=== PATIENT | male | born 1955 | race Caucasian/White ===

== ENCOUNTER 2024-07-21 17:44 | Inpatient (IN) | payer MEDICARE, OTHER, SELFPAY ==
[2024-07-21] VITALS (13 sets, daily range): BP systolic 159–248; BP diastolic 101–164; BMI 40.5
--- NOTE | 2024-07-21 13:49 | ED.GENMED ---
ED Provider Triage
<Deep Peña PA-C - Last Filed: 07/21/24 13:50>
-
Patient seen by provider in Triage?: Seen in Triage
Attestation: A medical screening examination has been initiated by a qualified medical provider. Based on the assessment performed at this time, it has been determined that an emergent medical condition may exist and the patient has been informed
that further medical evaluation and possible additional diagnostic testing may be needed.
HPI: 69-year-old male presents for evaluation of shortness of breath and leg swelling ongoing for the past 1 to 2 weeks. Prior history of CHF. Not currently on diuretics. No fevers or chills.
GENERAL: Alert , in no apparent distress
EYE: No visual abnormalities.
NECK: Trachea midline
ENT: No visible abnormalities.
LUNGS: No acute respiratory distress
NEUROLOGICAL: Alert and oriented
SKIN: Skin intact. No visible changes.
MUSCULOSKELETAL: Moving extremities normally
PSYCH: Normal and appropriate interaction.
This is a medical evaluation conducted in person to initiate diagnostic evaluation and provide initial therapeutics. Please see further documentation by the treating clinician.
History of Present Illness
<Deep Peña PA-C - Last Filed: 07/21/24 13:50>
General
Chief Complaint: Heart Rate Problem
Time Seen by Provider: 07/21/24 14:16
<Kathleen Holguin PA-C - Last Filed: 07/21/24 23:08>
General
Source: patient
Exam Limitations: none
History of Present Illness
History of Present Illness:
69yoM with a history of hypertension and CHF presenting for evaluation of shortness of breath. Symptoms have been ongoing for the past several weeks. Dyspnea is worse with activity and with laying flat. He also is having increasing bilateral leg
swelling. Patient went to [facility] this afternoon and EKG showed atrial fibrillation and patient was sent to the ED. Patient has no prior history of afib. He denies any chest pain. Patient was admitted in 2019 for CHF. He has been off all
his medications for the past 3 years.
Past History
<Deep Peña PA-C - Last Filed: 07/21/24 13:50>
Past History
ED Past Medical History: Asthma and HTN; Negative Hypercholesterolemia or NIDDM
ED Past Surgical History: None
Social History
Tobacco: Non-smoker
Alcohol: Occasional
Personal: Single
Living: alone
Phy Exam
<Kathleen Holguin PA-C - Last Filed: 07/21/24 23:08>
General Physical Exam
General Presentation: mild distress
General Skin: warm and dry
General Habitus: normal
General Mental: alert
ENT Exam
ENT Exam: normocephalic
Cardiovascular Exam
Cardiovascular Exam: irregularly irregular, tachycardia and other (2-3+ pitting edema in bilateral lower extremities)
Pulmonary Exam
Pulmonary Exam: lungs clear, no respiratory distress, no rales, no crackles and no rhonchi
Neurological Exam
Neurological Exam: alert
Yenny Coma Scale
Eye Opening: Spontaneous
Verbal Response: Oriented
Motor Response: Obeys Commands
GCS Total Score: 15
Skin Exam
Skin Exam: normal color and warm/dry
Psychiatric Exam
Psychiatric Exam: normal mood/affect
Course
<Deep Peña PA-C - Last Filed: 07/21/24 13:50>
Orders/Labs/Results
Orders:
Orders
07/21/24 13:39
Electrocardiogram (*1) Urgent
Reason for Study: Bradycardia / Tachycardia
EKG- Treatment ONCE
07/21/24 13:49
CR Chest - 2 Views Urgent
Comment:
Reason For Exam: SOB
07/21/24 13:59
Complete Blood Count/With Diff Urgent
Comprehensive Metabolic Panel Urgent
Magnesium Urgent
NT-proBNP Urgent
Troponin I Urgent
07/21/24 14:30
Add On- LAB Urgent
Tests Added?: magnesium
Cardiac Monitoring- Treatment ONCE
07/21/24 14:33
Furosemide [Lasix] 40 mg IV NOW STA
07/21/24 14:52
PTT Urgent
Prothrombin Time Urgent
07/21/24 Dinner
Cholesterol Lowering
At Your Request: Full Participation
Fluid Restriction: 1200 mL/day (40 oz)
Cholesterol Lowering: Sodium, 2 Gram
07/21/24 15:28
CARDIOLOGY CONSULT Urgent
Consulting Provider: Sunday Brenner
Was physician already notified: Yes
07/21/24 16:21
Metoprolol [Lopressor] 5 mg IV NOW STA
07/21/24 16:25
Carvedilol [Coreg] 6.25 mg PO BID
HydrALAZINE [Apresoline] 25 mg PO TID
07/21/24 16:43
EKG [Electrocardiogram (*1)] Urgent
Reason for Study: Atrial Fibrillation
07/21/24 16:44
EKG- Treatment ONCE
07/21/24 17:00
ISOSORBIDE MONOnitrate ER [Imdur (Extended Release)] 30 mg PO DAILY
07/21/24 17:13
Admit/Transfer Patient As Directed
Co-Sign Provider:
Level of Care: Inpatient admission
Assign to:: Telemetry
Physician / Group: anjel nova
Diagnosis: acute on chronic chf , new afib, htn urgency ckd
Reason for Telemetry: Arrhythmia
Date to Stop Telemetry: 07/24/24
Time to Stop Telemetry: 11:00
Reason for Hospitalization: acute on chronic chf , new afib, htn urgency ckd
Expected length of stay greater than two midnights?: Yes
ELOS- Estimated Length of Stay in days: 4
I certify the patient meets the requirements for IP care: Yes
Code Status As Directed
Resuscitation Status: Full Code
07/21/24 17:15
PRN Pain Medication Management As Directed
May give lesser potent ordered pain med per pt: Yes
preference::
Protocol:: Medication orders for pain may be administered in a
manner that supports deferring to patient preference
when the pt is:
- Requesting an ordered lesser potent pain medication.
Least to most potent pain medications are defined
as: acetaminophen < NSAID < tramadol < opioids
(morphine, oxycodone, hydromorphone).
- Requesting a lesser dose of the same medication IF
ORDERED.
- Requesting a less intrusive route of administration
if both routes are prescribed by the provider (PO <
IV).
07/21/24 18:04
Troponin I Urgent
07/21/24 19:07
Acetaminophen [Tylenol] 650 mg PO Q4HPRN PRN
07/21/24 19:07
Activity As Directed
Activity Level: As Tolerated
Intake/ Output As Directed
Frequency: Per unit guidelines
Vital Signs As Directed
Frequency: Per unit guidelines
Weight As Directed
Frequency: Daily
Pulse Ox/spot Check [RESP] Routine
Quantity: 1
Ot Eval And Treat Routine
Pt Eval And Treat Routine
Activity Level: As Tolerated
DX Deep Vein Thrombosis Video Routine
07/21/24 20:00
Heparin 5,000 units SC Q12
07/21/24 22:00
EKG [Electrocardiogram (*1)] Urgent
Reason for Study: Shortness of Breath
07/21/24 22:25
Troponin I Urgent
07/22/24 06:00
Complete Blood Count/With Diff IN AM
Comprehensive Metabolic Panel IN AM
Hemoglobin A1c [Glycohemoglobin (HgbA1c)] IN AM
Lipid Profile [Cardiovascular Evaluation] IN AM
TSH Reflex To Free T4 IN AM
07/22/24 08:00
Furosemide [Lasix] 40 mg IV BID AT 0800,1600
07/23/24 06:00
Complete Blood Count/With Diff IN AM
Comprehensive Metabolic Panel IN AM
07/24/24 06:00
Echo 2D MMode Color/Doppler IN AM
Reason for Study: AFIB, CHF
Complete Blood Count/With Diff IN AM
Comprehensive Metabolic Panel IN AM
07/24/24 11:00
DC Protocol for Telemetry ONCE
07/25/24 06:00
Complete Blood Count/With Diff IN AM
Comprehensive Metabolic Panel IN AM
Abnormal Lab Results
07/21/24 07/21/24
13:59 14:52
MCHC 31.7 L g/dL
(33.0-37.0)
RDW 15.4 H %
(11.5-14.5)
MPV 10.8 H fL
(7.4-10.4)
Absolute Neuts (auto) 7.0 H 10^3/uL
(1.4-6.5)
Absolute Monos (auto) 0.9 H 10^3/uL
(0.1-0.6)
Neutrophils % 75.7 H %
(42.2-75.2)
Lymphocytes % 13.6 L %
(20.5-51.1)
PT 15.2 H Sec
(11.4-14.6)
BUN 35 H mg/dl
(9-20)
Creatinine 2.1 H mg/dL
(0.7-1.3)
Glucose 164 H mg/dl
(70-99)
Troponin I 0.170 H* ng/ml
07/21/24 13:59
07/21/24 13:59
Vital Signs
Initial and Last Documented VS:
Initial Vital Signs
Temp Pulse Resp BP
98.2 F 119 20 248/164
07/21/24 13:47 07/21/24 13:47 07/21/24 13:47 07/21/24 13:47
Last Documented Vital Signs
Temp Pulse Resp BP Pulse Ox
98.4 F 70 20 166/110 96
07/21/24 19:59 07/21/24 22:26 07/21/24 19:59 07/21/24 22:26 07/21/24 19:59
Raúllt;Kathleen Holguin PA-C - Last Filed: 07/21/24 23:08>
Orders/Labs/Results
Orders:
Orders
07/21/24 13:39
Electrocardiogram (*1) Urgent
Reason for Study: Bradycardia / Tachycardia
EKG- Treatment ONCE
07/21/24 13:49
CR Chest - 2 Views Urgent
Comment:
Reason For Exam: SOB
07/21/24 13:59
Complete Blood Count/With Diff Urgent
Comprehensive Metabolic Panel Urgent
Magnesium Urgent
NT-proBNP Urgent
Troponin I Urgent
07/21/24 14:30
Add On- LAB Urgent
Tests Added?: magnesium
Cardiac Monitoring- Treatment ONCE
07/21/24 14:33
Furosemide [Lasix] 40 mg IV NOW STA
07/21/24 14:52
PTT Urgent
Prothrombin Time Urgent
07/21/24 Dinner
Cholesterol Lowering
At Your Request: Full Participation
Fluid Restriction: 1200 mL/day (40 oz)
Cholesterol Lowering: Sodium, 2 Gram
07/21/24 15:28
CARDIOLOGY CONSULT Urgent
Consulting Provider: Sunday Brenner
Was physician already notified: Yes
07/21/24 16:21
Metoprolol [Lopressor] 5 mg IV NOW STA
07/21/24 16:25
Carvedilol [Coreg] 6.25 mg PO BID
HydrALAZINE [Apresoline] 25 mg PO TID
07/21/24 16:43
EKG [Electrocardiogram (*1)] Urgent
Reason for Study: Atrial Fibrillation
07/21/24 16:44
EKG- Treatment ONCE
07/21/24 17:00
ISOSORBIDE MONOnitrate ER [Imdur (Extended Release)] 30 mg PO DAILY
07/21/24 17:13
Admit/Transfer Patient As Directed
Co-Sign Provider:
Level of Care: Inpatient admission
Assign to:: Telemetry
Physician / Group: anjel nova
Diagnosis: acute on chronic chf , new afib, htn urgency ckd
Reason for Telemetry: Arrhythmia
Date to Stop Telemetry: 07/24/24
Time to Stop Telemetry: 11:00
Reason for Hospitalization: acute on chronic chf , new afib, htn urgency ckd
Expected length of stay greater than two midnights?: Yes
ELOS- Estimated Length of Stay in days: 4
I certify the patient meets the requirements for IP care: Yes
Code Status As Directed
Resuscitation Status: Full Code
07/21/24 17:15
PRN Pain Medication Management As Directed
May give lesser potent ordered pain med per pt: Yes
preference::
Protocol:: Medication orders for pain may be administered in a
manner that supports deferring to patient preference
when the pt is:
- Requesting an ordered lesser potent pain medication.
Least to most potent pain medications are defined
as: acetaminophen < NSAID < tramadol < opioids
(morphine, oxycodone, hydromorphone).
- Requesting a lesser dose of the same medication IF
ORDERED.
- Requesting a less intrusive route of administration
if both routes are prescribed by the provider (PO <
IV).
07/21/24 18:04
Troponin I Urgent
07/21/24 19:07
Acetaminophen [Tylenol] 650 mg PO Q4HPRN PRN
07/21/24 19:07
Activity As Directed
Activity Level: As Tolerated
Intake/ Output As Directed
Frequency: Per unit guidelines
Vital Signs As Directed
Frequency: Per unit guidelines
Weight As Directed
Frequency: Daily
Pulse Ox/spot Check [RESP] Routine
Quantity: 1
Ot Eval And Treat Routine
Pt Eval And Treat Routine
Activity Level: As Tolerated
DX Deep Vein Thrombosis Video Routine
07/21/24 20:00
Heparin 5,000 units SC Q12
07/21/24 22:00
EKG [Electrocardiogram (*1)] Urgent
Reason for Study: Shortness of Breath
07/21/24 22:25
Troponin I Urgent
07/22/24 06:00
Complete Blood Count/With Diff IN AM
Comprehensive Metabolic Panel IN AM
Hemoglobin A1c [Glycohemoglobin (HgbA1c)] IN AM
Lipid Profile [Cardiovascular Evaluation] IN AM
TSH Reflex To Free T4 IN AM
07/22/24 08:00
Furosemide [Lasix] 40 mg IV BID AT 0800,1600
07/23/24 06:00
Complete Blood Count/With Diff IN AM
Comprehensive Metabolic Panel IN AM
07/24/24 06:00
Echo 2D MMode Color/Doppler IN AM
Reason for Study: AFIB, CHF
Complete Blood Count/With Diff IN AM
Comprehensive Metabolic Panel IN AM
07/24/24 11:00
DC Protocol for Telemetry ONCE
07/25/24 06:00
Complete Blood Count/With Diff IN AM
Comprehensive Metabolic Panel IN AM
Abnormal Lab Results
07/21/24 07/21/24
13:59 14:52
MCHC 31.7 L g/dL
(33.0-37.0)
RDW 15.4 H %
(11.5-14.5)
MPV 10.8 H fL
(7.4-10.4)
Absolute Neuts (auto) 7.0 H 10^3/uL
(1.4-6.5)
Absolute Monos (auto) 0.9 H 10^3/uL
(0.1-0.6)
Neutrophils % 75.7 H %
(42.2-75.2)
Lymphocytes % 13.6 L %
(20.5-51.1)
PT 15.2 H Sec
(11.4-14.6)
BUN 35 H mg/dl
(9-20)
Creatinine 2.1 H mg/dL
(0.7-1.3)
Glucose 164 H mg/dl
(70-99)
Troponin I 0.170 H* ng/ml
07/21/24 13:59
07/21/24 13:59
Vital Signs
Initial and Last Documented VS:
Initial Vital Signs
Temp Pulse Resp BP
98.2 F 119 20 248/164
07/21/24 13:47 07/21/24 13:47 07/21/24 13:47 07/21/24 13:47
Last Documented Vital Signs
Temp Pulse Resp BP Pulse Ox
98.4 F 70 20 166/110 96
07/21/24 19:59 07/21/24 22:26 07/21/24 19:59 07/21/24 22:26 07/21/24 19:59
Raúllt;Kathleen Holguin PA-C - Last Filed: 07/21/24 23:08>
MDM/Problems Addressed
Differential Diagnosis Includes:
69yoM here with SOB and leg swelling x several weeks. Hx of CHF/HTN but off all meds for 3 years. Sent in by urgent care for new onset afib. BP 248/164 on arrival. HR in the 110s during exam. He appears volume overloaded. Differential diagnosis
includes but is not limited to: acute CHF exacerbation, hypertensive emergency, atrial fibrillation, ACS
Labs obtained in triage. Creatinine 2.1 which is new baseline. Troponin 0.17 and BNP >9000. Mild pulmonary edema seen on CXR. 40mg IV Lasix ordered. Cardiology consult placed and patient admitted for further management.
<Kathleen Holguin PA-C - Last Filed: 07/21/24 23:08>
*EKG
Interpreted by ED Provider?: Yes
EKG Intrepretation Date: 07/21/24
Heart Rate: 121
Rate: tachycardiac
Rhythm: a-fib
[place]: left axis deviation
Interval: normal interval
Ischemia: no ischemia
*Critical Care Note
Total Time (30-74mins, 75-104mins- exclusive of procedures): Not Applicable
ED Attending Note
<Deep Peña PA-C - Last Filed: 07/21/24 13:50>
-
Portions of this chart may have been created with voice recognition software.� Occasional wrong word or��sound alike� substitutions may have occurred due to the inherent limitations of voice recognition software.
Discharge Plan
Departure
Patient Disposition: Admit
Date of Disposition: 07/21/24
Time of Disposition: 15:28
Presentation/result/management discussed w/ accepting MD/DO: Hospitalist
Discharge Problem:
Acute exacerbation of CHF (congestive heart failure), Atrial fibrillation, Severe uncontrolled hypertension
Interventions
Interventions:
*Risk Screen - Suicide Last Done: 07/21/24 13:47
*General Assessment Last Done: 07/21/24 13:47
*Neglect/Abuse Screening Last Done: 07/21/24 13:47
ED- Fall Risk Assessment Last Done: 07/21/24 16:29
*ED COVID-19 Vaccine History Last Done: 07/21/24 14:20
*Nursing Disposition Last Done: 07/21/24 19:00
ED- Cardiac Assessment Last Done: 07/21/24 16:29
ED- Neurological Assessment Last Done: 07/21/24 16:31
ED- Pulmonary Assessment Last Done: 07/21/24 16:31
Discharge Date and Time
Discharge Date/Time: 07/21/24 19:00
[2024-07-21 14:13] LABS: % Basophils 0.5 % (0-2); % Eosinophils 0.6 % (0-6); % Immature Granulocytes 0.4 % (0-0.5); % Lymphocytes 13.6 % (20.5-51.1); % Monocytes 9.2 % (1.7-9.3); % Neutrophils 75.7 % (42.2-75.2); Absolute Basophils 0.1 10^3/uL (0-0.2); Absolute Eosinophils 0.1 10^3/uL (0-0.7); Absolute Lymphocytes 1.3 10^3/uL (1.2-3.4); Absolute Monocytes 0.9 10^3/uL (0.1-0.6); Hematocrit 43.6 % (39.0-52.0); Hemoglobin 13.8 g/dL (13.0-18.0); Mean Corp Hgb Conc. 31.7 g/dL (33.0-37.0); Mean Corpuscular Hgb 27.2 pg (27.0-31.0); Mean Corpuscular Volume 85.8 fL (80.0-94.0); Mean Platelet Volume 10.8 fL (7.4-10.4); Nucleated Red Blood Cells % 0 % (-); Platelet Count 233 10^3/uL (130-400); Red Blood Cell Count 5.08 10^6/uL (4.70-6.10); Red Cell Dist. Width 15.4 % (11.5-14.5); White Blood Cell Count 9.3 10^3/uL (4.8-10.8)
[2024-07-21 14:32] LABS: ALT (SGPT) 42 U/L (0-50); AST (SGOT) 38 U/L (17-59); Albumin 4.3 g/dl (3.5-5.0); Alkaline Phosphatase 107 U/L (38-126); Blood Urea Nitrogen 35 mg/dl (9-20); Calcium 9.5 mg/dl (8.4-10.2); Carbon Dioxide 25 mmol/L (22-30); Chloride 104 mmol/L (98-107); Glucose 164 mg/dl (70-99); Potassium 4.1 mmol/L (3.5-5.1); Sodium 141 mmol/L (135-145); Total Bilirubin 1.3 mg/dl (0.2-1.3); Total Protein 6.5 g/dl (6.3-8.2); eGFR 33.87
[2024-07-21 14:43] LABS: NT-proBNP 9170 pg/ml
[2024-07-21 14:50] LABS: Magnesium 2.1 mg/dl (1.6-2.3)
[2024-07-21] MEDS: LASIX 40 MG IV (14:53)
[2024-07-21 15:12] LABS: INR 1.17; PT 15.2 Sec (11.4-14.6)
[2024-07-21 15:13] LABS: APTT 28.6 Sec (23.4-35.0)
--- NOTE | 2024-07-21 16:23 | CON.CAR ---
Addendum entered and electronically signed by Sunday Brenner MD 07/21/24 16:44:
Mild troponin elevation:
-Likely acute nonischemic myocardial injury in the setting of hypertensive crisis, CKD, and CHF exacerbation.
Original Note:
Consultation
Consultation Request
Date/Time Consultation Requested: 07/21/2024
Date/Time Consultation Performed: 07/21/2024
Requesting Provider: Kathleen Holguin PA-C
Performing Provider: Dr. Brenner
Reason for Consultation: Hypertensive crisis
Medical History
-
Chief Complaint: Shortness of breath, lower extremity swelling
History of Present Illness:
64-year-old male (previously known to Dr. 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
history of progressive lower extremity swelling, dyspnea, and weight gain. The patient denies chest pain or palpitations. The patient stated that after COVID, he decided to stop following up with Cardiology because he felt fine and was worried
about the potential of medication side effects. The patient was also found to be in atrial fibrillation with RVR on arrival to the ER with a blood pressure of 248/164 mmHg.
Past Medical History
Past Medical History: CHF and HTN
Past Surgical History: Other (Melanoma removal from back 2 years ago)
Social History
Tobacco: Other (Previous cigar use)
Alcohol: Occasional (On weekends)
Drug: None
Family History
Family History: Reviewed & Not Pertinent
Allergies / Home Medications
Allergy/AdvReac Type Severity Reaction Status Date / Time
No Known Allergies Allergy Verified 07/21/24 13:52
�Medication �Instructions �Recorded �Confirmed �Type
No Meds [No Current Medications] 07/21/24 07/21/24 History
Review of Systems
-
History Source: Patient
All other systems: Negative unless noted
Physical Exam
Vital Signs
Temp Pulse Resp BP
98.2 F 114 16 224/139
07/21/24 13:47 07/21/24 14:45 07/21/24 14:59 07/21/24 14:45
Lab Results
07/21/24 13:59
07/21/24 13:59
Troponin I 0.170 ng/ml H* 07/21/24 13:59
Beu-E-Pewbqeygvtv Pept 9170 pg/ml 07/21/24 13:59
Physical Exam
General: No Apparent Distress and Comfortable
HEENT: Normocephalic and Anicteric
Respiratory: Rhonchi (Mild bibasilar)
Cardiac: S1/S2, Regular Rhythm, Murmur (2/6) and Peripheral Edema (2+)
Breast: N/A
GI: Soft and Non Tender
Rectal: Deferred by Provider
Musculoskeletal: Edema (2+ bilateral pitting)
Skin: Warm and Dry
Neuro: AO x 3
Psych: Calm
Impression / Plan
-
64-year-old male (previously known to Dr. 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
history of progressive lower extremity swelling, dyspnea, and weight gain. The patient denies chest pain or palpitations. The patient stated that after COVID, he decided to stop following up with Cardiology because he felt fine and was worried
about the potential of medication side effects. The patient was also found to be in atrial fibrillation with RVR on arrival to the ER with a blood pressure of 248/164 mmHg.
Hypertensive crisis:
-Patient was given Lasix 40 mg IV in the ER.
-Will give 5 mg IV Lopressor now.
-Will start Coreg 25 mg BID, Imdur 30 mg daily, and hydralazine 25 mg TID; will avoid medications that could worsen kidney function at this time (MARY inhibitor/ARB/Entresto, etc.).
-Echocardiogram this admission.
-Medications will be uptitrated over the weekend.
New onset atrial fibrillation with RVR:
-C2V score is at least 3.
-Check TSH and hemoglobin A1c.
-Systemic anticoagulation is indicated, but will not initiate until his blood pressure control has improved (increased risk of intracranial hemorrhage given currently high blood pressure).
-Echocardiogram this admission as above.
Acute on chronic HFmrEF (40-45%):
-GDMT as above.
-Will place on Lasix 40 mg IV BID.
CKD:
-Continue to monitor renal function.
Obesity:
-Chronic.
-Check lipid panel.
Data Reviewed
-
EKG: Report Reviewed by me (Atrial fibrillation at 120 bpm with LAFB and septal infarct pattern.)
Medical Tests (Nuc Med, Echo etc): Report Reviewed by me (Transthoracic Echocardiogram 12/08/2019): LVEF 70-75%, mild aortic regurgitation, sinus of Valsalva 4.3 cm, STJ 4.1 cm, ascending aorta 4.0 cm.)
Labs: Labs Reviewed by me
--- NOTE | 2024-07-21 16:26 | EDRN ---
Pt has had intermittent sob and swelling for 2 weeks. Pt went to [facility] and was told he was in AFIb and he was sent to ED for evaluation. Pt denies cp. No sob now but pt says if he lies down he will get sob. Pt did not have sob when he
got up to the bathroom. Pt felt pressure in his abdomen 'like a convulsion.' No fever/chills, n/v/c/d, urinary symptoms, weakness, dizziness.
--- NOTE | 2024-07-21 16:36 | HPS.HSE ---
Addendum entered and electronically signed by Ishmael Man MD 07/21/24 17:24:
I saw and examined the patient.
The LOGISTICS TECH or PA's note was reviewed and I agree with the note.
Comment:
69-year-old male now presents for shortness of breath, nausea, edema has been worsening approximately over the last 2 weeks.� Was seen in the hospital years ago, placed on meds for hypertensive urgency and never renewed them nor went back to the
doctor. Blood pressure 235/123, saturating 94% on room air, pulse 107, respiratory rate 16.� A-fib on EKG.� X-ray with cardiomegaly and increased pulmonary vascular congestion.� Serum creatinine 2.1, close to baseline.� Troponin 0.170, proBNP 9170.
#Shortness of breath
#Acute heart failure, unknown type- anticipate HFrEF
� Initiate diuresis 40 mg twice daily IV
� Initiate Coreg, hydralazine, isosorbide mononitrate
- Cards Consult
- F/u ECHO
- Troponins
#?Atrial Fibrillation
-Monitor on Tele with Coreg
-Anticoagulation once BPs improve � elevated BPs pose risk for cva.
#Hypertensive Emergency
-See plan above
-Coreg, Hydral, isososorbide mononitritate � titrate as needed
#CKD
-Stable
-Suspect 2/2 to uncontrolled htn
-monitor
#Will need outpt primary screening
#DVT ppx
Anticipate starting anticoagulation once BPs more controlled
Original Note:
Family Physician
-
Family Physician: * NONE
Chief Complaint
-
Shortness of breath, leg edema
History of Present Illness
69-year-old male complaining of shortness of breath for the past few weeks with swelling from feet to upper abdomen over the past 2 weeks. He has prior history of CHF diagnosed in 2019. He was given short course of diuretics, antihypertensive
medications lisinopril, Lasix, metoprolol. He states he took these until 2019 when ROSEANNA hit then he decided he was not going to any healthcare place. He began homeopathic meds with black seed oil and sea leyva he states he was bringing his blood
pressure to 130/100. He has not seen a primary care provider or any care provider since 2019 until today when he was seen at urgent care. They sent him over for A-fib with heart rate 123 bpm on his EKG. He denies chest pain, palpitations, fever,
chills, abdominal pain, nausea, vomiting, diarrhea, urinary symptoms.
Other past medical history includes asthma, HTN, CHF 2019, obesity
Medical History
Past Medical History
Past Medical History: Reports Other
Additional Past Medical History:
asthma
HTN
CKD 3B
CHF 2019
obesity
Past Surgical History: Reports Other
Additional Past Surgical History:
Tooth extraction all upper teeth with era attachments placed for false teeth
Basal cell CA removal with local anesthesia
Social History
Tobacco: Non-smoker
Alcohol: Occasional (Drinks 2 drinks Wednesday and Saturdays)
Drug: None
Employment: Retired
Family History
Family History: Other (Mother living hypertension, father cancer unknown type age 80, paternal grandfather age 40 [place])
Allergies / Home Medications
Allergies reflects when Allergies were last updated in [facility].
Home Medications with original date entered in [facility]
Allergy/Medication List:
Allergies
Allergy/AdvReac Type Severity Reaction Status Date / Time
No Known Allergies Allergy Verified 07/21/24 13:52
Home Medications
No Meds [No Current Medications] 07/21/24
Review of Systems
-
History Source: Patient
A 12 point ROS was completed and negative except as noted: Yes
Constitutional: Reports Weight Gain; Denies Fever, Fatigue or Chills
EENT: Denies Sore Throat or Runny Nose
Respiratory: Reports Trouble Breathing (Shortness of breath, FLOYD, orthopnea); Denies Cough
Cardiac: Denies Chest Pain, Diaphoresis, Palpitations or Syncope
Abdomen/GI: Denies Abdominal Pain, Nausea, Vomiting, Diarrhea, Constipated, Bloody Stools or Black Stools
: Denies Dysuria, Frequency, Flank Pain, Incontinence, Difficulty Voiding, Urgency or Bleeding
Musculoskeletal: Reports Edema (+2 from feet to abdomen); Denies Joint Pain
Skin: Denies Itching or Rash
Neurological: Denies Dizzy, Headache or Weakness
Endocrine: Reports No Symptoms
Hematologic/Lymphatic: Reports No Symptoms
Psych: Reports Calm
Physical Exam
Vital Signs
Vital Signs
Temp Pulse Resp BP
98.9 F 114 16 224/139
07/21/24 16:28 07/21/24 14:45 07/21/24 14:59 07/21/24 14:45
Physical Exam
General: Comfortable and Conversant; No Pain, Fever or Chills
HEENT: NormoCephalic, Anicteric, Moist mucous membranes, PERRLA, [place]gett Conjunctivae and No Ptosis
Respiratory: Clear; No Wheezes, Rales or Rhonchi
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
Breast: Deferred by me
GI: Soft, Non Tender, Non Distended, Normal Bowel Sounds, No Hepatosplenomegaly and Other (Edema from lower legs to upper abdomen)
Genito-urinary: Deferred by me
Musculoskeletal: No Clubbing, No Cyanosis, Edema, Left Lower Extremity (+2 from feet to abdomen) and Edema, Right Lower Extremity (+2 from feet to abdomen); No Edema, Left Upper Extremity or Edema, Right Upper Extremity
Skin: Warm and Dry; No Rash
Neuro: AO x 3, No Motor Deficits, Nonfocal/grossly intact and No Sensory Deficits; No Slurred Speech, Facial Droop, Tremors or Sedated
Psych: Calm
Laboratory Results
-
07/21/24 13:59
07/21/24 13:59
Laboratory Results
PT 15.2 Sec (11.4-14.6) H 07/21/24 14:52
INR 1.17 07/21/24 14:52
APTT 28.6 Sec (23.4-35.0) 07/21/24 14:52
Total Bilirubin 1.3 mg/dl (0.2-1.3) 07/21/24 13:59
AST 38 U/L (17-59) 07/21/24 13:59
ALT 42 U/L (0-50) 07/21/24 13:59
Alkaline Phosphatase 107 U/L (38-126) 07/21/24 13:59
Troponin I 0.170 ng/ml H* 07/21/24 13:59
Data Reviewed
-
Diagnostic Radiology: Report Reviewed by me
Lab Data: Labs Reviewed by me
Impression/Plan
-
Impression/plan:
Admit to telemetry
#Acute on chronic CHF
Dx CHF 2019 was noncompliant after using short course of diuretics states stopped seeing doctors during COVID
I/O, daily weights
-Consult CBC cardiology
-IV Lasix 40 mg twice daily
-Repeat 2D echo
CXR: Cardiomegaly with slightly increased pulmonary vascularity suggesting possible mild CHF acute versus chronic
2D echo 12/08/2019: EF 70 to 75%, no wall abnormalities, normal biventricular size and systolic function, mild LVH, mild aortic regurg, dilated aortic root sinus of Valsalva 4.3 cm sinotubular junction 4.1 cm, ascending aorta 4cm
2D echo 10/10/2018: EF 40-45%, mild reduced LVSF, global hypokinesis, mild LVH, mildly dilated left atrium, mild aortic regurg
#Hypertensive urgency/history of hypertensive urgency 2018
BP 224/139
IV Lopressor 5 mg now in ER
-To start hydralazine 25 mg 3 times daily, Imdur ER 30 mg daily, Lasix 40 mg IV twice daily, Coreg 6.25 mg p.o. twice daily
#Nonischemic myocardial injury
Patient denies chest pain does complain of shortness of breath due to CHF
Troponin 0.170, will trend
-Coreg 6.25 mg twice daily added by cardiology, Imdur ER 30 mg daily added
#New onset A-fib with RVR
EKG from urgent care heart rate 123 bpm
-Will monitor on telemetry
Check TSH, HgbA1c
-Initiate Coreg 6.25 mg twice daily for rate control
-Hold on anticoagulation due to hypertensive urgency and risk for intracranial hemorrhage
#CKD Stage IIIb
Creat 2.1 prior was 1.9 in 07/27/2019
Renal ultrasound 10/08 shows right kidney 12.5 cm, left kidney 11
cm. Postvoid residual 231.
#Class III obesity�BMI 40.5
113.9 kg > 95.1 kg 10/12/2018
-weight loss recommended
Affects all aspects of care
DVT prophylaxis
Subcu heparin
Full code
[2024-07-21] MEDS: LOPRESSOR 5 MG IV (16:38)
[2024-07-21] MEDS: APRESOLINE 25 MG PO ×2 (16:48→22:26)
[2024-07-21] MEDS: COREG 6.25 MG PO ×2 (16:48→20:48)
--- NOTE | 2024-07-21 16:53 | EDRN ---
Called pharmacy for imdavidr
[2024-07-21] MEDS: IMDUR (EXTENDED RELEASE) 30 MG PO (17:34)
[2024-07-21 18:39] LABS: Troponin I 0.244 ng/ml
[2024-07-21] MEDS: HEPARIN 5000 UNITS SC (20:48)
[2024-07-21 23:00] LABS: Troponin I 0.242 ng/ml
[2024-07-22] VITALS (9 sets, daily range): BP systolic 129–205; BP diastolic 77–126; BMI 39.7
--- NOTE | 2024-07-22 03:09 | PTCARENOTE ---
Admitted at change into 2253- CHF and AFIB booklet provided. Plan of care discussed pt verbalized understanding. SR with 1st degree on the monitor.
[2024-07-22 04:29] LABS: % Basophils 0.6 % (0-2); % Eosinophils 2.7 % (0-6); % Immature Granulocytes 0.3 % (0-0.5); % Lymphocytes 19.7 % (20.5-51.1); % Monocytes 10.5 % (1.7-9.3); % Neutrophils 66.2 % (42.2-75.2); Absolute Basophils 0.1 10^3/uL (0-0.2); Absolute Eosinophils 0.3 10^3/uL (0-0.7); Absolute Lymphocytes 1.9 10^3/uL (1.2-3.4); Absolute Neutrophils 6.4 10^3/uL (1.4-6.5); Hemoglobin 12.7 g/dL (13.0-18.0); Mean Corp Hgb Conc. 32.6 g/dL (33.0-37.0); Mean Corpuscular Hgb 27.9 pg (27.0-31.0); Mean Corpuscular Volume 85.7 fL (80.0-94.0); Mean Platelet Volume 10.9 fL (7.4-10.4); Nucleated Red Blood Cells % 0 % (-); Platelet Count 225 10^3/uL (130-400); Red Blood Cell Count 4.55 10^6/uL (4.70-6.10); Red Cell Dist. Width 15.3 % (11.5-14.5); White Blood Cell Count 9.6 10^3/uL (4.8-10.8)
[2024-07-22 05:02] LABS: ALT (SGPT) 39 U/L (0-50); AST (SGOT) 40 U/L (17-59); Albumin 4.3 g/dl (3.5-5.0); Alkaline Phosphatase 84 U/L (38-126); Blood Urea Nitrogen 35 mg/dl (9-20); Calcium 9.3 mg/dl (8.4-10.2); Carbon Dioxide 25 mmol/L (22-30); Chloride 107 mmol/L (98-107); Estimated Creatinine Clearance 40 ml/min; Glucose 103 mg/dl (70-99); HDL Cholesterol 45 mg/dl; LDL Cholesterol, Calculated 79 mg/dl; Potassium 4.3 mmol/L (3.5-5.1); Sodium 143 mmol/L (135-145); Total Bilirubin 1.2 mg/dl (0.2-1.3); Total Cholesterol 139 mg/dl (50-199); Total Protein 6.8 g/dl (6.3-8.2); Triglyceride 76 mg/dl (10-149); Very Low Density Lipoprotein 15 mg/dl (0-30); eGFR 33.87
[2024-07-22 05:15] LABS: TSH Reflex To Free T4 1.73 uIU/ml (0.47-4.68)
[2024-07-22] MEDS: COREG 6.25 MG PO ×2 (08:09→21:30)
[2024-07-22] MEDS: APRESOLINE 25 MG PO ×2 (08:09→09:23)
[2024-07-22] MEDS: IMDUR (EXTENDED RELEASE) 30 MG PO ×2 (08:09→09:22)
[2024-07-22] MEDS: LASIX 40 MG IV ×2 (08:11→17:04)
[2024-07-22] MEDS: HEPARIN 5000 UNITS SC ×2 (08:11→21:31)
[2024-07-22] MEDS: PROCARDIA XL (EXTENDED RELEASE) 30 MG PO (09:22)
--- NOTE | 2024-07-22 10:32 | W.PN.CD ---
Today's Communication / Plan
-
-Continue Coreg 6.25 mg BID.
-Increase Imdur to 60 mg daily and hydralazine to 50 mg TID.
-Add Procardia XL 30 mg daily.
-Echocardiogram Wednesday.
-Systemic anticoagulation is indicated, but will not initiate until his blood pressure control has improved (increased risk of intracranial hemorrhage given currently high blood pressure); will reassess tomorrow.
-Continue Lasix 40 mg IV BID.
Impression / Plan
-
64-year-old male (previously known to Dr. 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
history of progressive lower extremity swelling, dyspnea, and weight gain. The patient denies chest pain or palpitations. The patient stated that after COVID, he decided to stop following up with Cardiology because he felt fine and was worried
about the potential of medication side effects. The patient was also found to be in atrial fibrillation with RVR on arrival to the ER with a blood pressure of 248/164 mmHg.
Hypertensive crisis:
-Secondary to medical noncompliance over the past 5 years (has not taken any medications).
-Will likely have some degree of resistant hypertension, given the chronicity.
-Continue Coreg 6.25 mg BID.
-Increase Imdur to 60 mg daily and hydralazine to 50 mg TID.
-Add Procardia XL 30 mg daily.
-Avoiding medications that could worsen kidney function at this time (MARY inhibitor/ARB/Entresto, etc.).
-Echocardiogram Wednesday.
-Medications will continue to be uptitrated over the weekend.
New onset atrial fibrillation with RVR:
-Now back in sinus rhythm.
-C2V score is at least 3.
-TSH normal.
-Systemic anticoagulation is indicated, but will not initiate until his blood pressure control has improved (increased risk of intracranial hemorrhage given currently high blood pressure); will reassess tomorrow.
-Echocardiogram Wednesday.
Acute on chronic HFmrEF (40-45%):
-BNP 9170; significant edema on examination.
-GDMT as above.
-Continue Lasix 40 mg IV BID.
Troponin elevation:
-Acute nonischemic myocardial injury in the setting of uncontrolled hypertension and CKD.
CKD:
-Continue to monitor renal function.
Obesity:
-Chronic.
-Cholesterol controlled.
-Hemoglobin A1c pending
Physical Exam
Vital Signs/Labs
Vital Signs
Temp Pulse Resp BP Pulse Ox
97.9 F 87 16 151/97 97
07/22/24 07:58 07/22/24 09:22 07/22/24 07:58 07/22/24 09:22 07/22/24 07:58
07/21/24 07/22/24 07/23/24
06:59 06:59 06:59
Actual Weight 111.6 kg
07/22/24 04:08
07/22/24 04:08
PT 15.2 Sec (11.4-14.6) H 07/21/24 14:52
INR 1.17 07/21/24 14:52
APTT 28.6 Sec (23.4-35.0) 07/21/24 14:52
Magnesium 2.1 mg/dl (1.6-2.3) 07/21/24 13:59
Triglycerides 76 mg/dl (10-149) 07/22/24 04:08
LDL Cholesterol, Calc 79 mg/dl 07/22/24 04:08
VLDL Cholesterol, Calc 15 mg/dl (0-30) 07/22/24 04:08
HDL Cholesterol 45 mg/dl 07/22/24 04:08
07/21/24
13:59
Ybp-[id number] Pept 9170
LAB Results
01/07/21/24 07/21/24
13:59 18:04 22:25
Troponin I 0.170 H* 0.244 H* D 0.242 H*
Physical Exam
Constitutional: No acute distress and Comfortable
EENT: Anicteric
Cardiovascular: Rhythm & rate is regular, Systolic murmur absent, Pedal edema present (2-3+) and S1S2 is normal
Respiratory: Respiratory effort normal and Lungs clear to auscul.
GI: Soft
Neuro/Psych: AO x 3
Other: Skin (Warm, dry, intact)
Data Reviewed
-
Date of Service: July 22, 2024
EKG: Tracing Personally Visualized and interpreted (Telemetry: Sinus rhythm)
Medical Tests (PFT, Pathology etc): Discussed with Physician
Labs: Labs Reviewed by me
[2024-07-22 12:31] LABS: Glycohemoglobin (HgbA1c) 5.5 % (4.0-5.6)
--- NOTE | 2024-07-22 15:15 | PTCARENOTE ---
Assumed care of pt from prev nsg shift; Pt AAOx3 w/no c/o CP or SOB. Pt reports 'feeling much better'. Pt's HR in the 70's & BP 129/85. Pt is SR w/BBB on telemetry. Pt w/no addtl needs at this time. Plan of care ongoing.
--- NOTE | 2024-07-22 15:22 | W.PN.HOSP.TC ---
Today's Communication/Plan
-
Chest hypertensive regimen, add Procardia, increase Imdur, hydralazine, continue Coreg
Echocardiogram
Hold anticoagulation until blood pressures better controlled
Diuretics
Assessment / Plan
Assessment / Plan
Physical Exam
Constitutional: No acute distress and Comfortable
EENT: Anicteric
Cardiovascular: Rhythm & rate is regular, Systolic murmur absent, Pedal edema present (2-3+) and S1S2 is normal
Respiratory: Respiratory effort normal and Lungs clear to auscul.
GI: Soft
Neuro/Psych: AO x 3
Other: Skin (Warm, dry, intact)
#Shortness of breath
#Acute heart failure, unknown type- anticipate HFrEF
� Initiate diuresis 40 mg twice daily IV
� Initiate Coreg, hydralazine, isosorbide mononitrate
- Cards Consult
- F/u ECHO
#new Onset Atrial Fibrillation
-Monitor on Tele with Coreg
-Anticoagulation once BPs improve � elevated BPs pose risk for cva.
-TSH WNL
-F/u ECHO wednesday
#Hypertensive Emergency
-See plan above
-Coreg,
-Increase Hydra to 50mg TID
-Increase Imdur to 60mg daily
-Add Procardia Xl 30mg daily
#Elevated Troponin
�Most likely nonischemic myocardial injury in setting of uncontrolled hypertension, CKD
� Continue to monitor
#CKD
-Stable
-Suspect 2/2 to uncontrolled htn
-monitor
-Will need outpt primary screening
�Will benefit from MARY inhibitor once nonfactor stabilized
#DVT ppx
Anticipate starting anticoagulation once BPs more controlled
Anticipated Discharge: > 48 hours
Subjective/Interval History
-
Date of Service: July 22, 2024
Still hypertensive
Objective Data
-
Labs:
Laboratory Results
07/22/24
04:08
WBC 9.6
Hgb 12.7 L
Hct 39.0
Plt Count 225
Sodium 143
Potassium 4.3
Chloride 107
Carbon Dioxide 25
BUN 35 H
Creatinine 2.1 H
Glucose 103 H
Calcium 9.3
Total Bilirubin 1.2
AST 40
ALT 39
Alkaline Phosphatase 84
Vital Signs:
Vital Signs
Temp Pulse Resp BP Pulse Ox
97.9 F 67 18 137/82 96
07/22/24 11:27 07/22/24 12:00 07/22/24 11:27 07/22/24 11:25 07/22/24 11:27
I&O
07/21/24 07/22/24 07/23/24
06:59 06:59 06:59
Output Total 200 / 200
Balance -200 / -200
Review of Systems
-
History Source: Patient
All other systems: Not reviewed unless documented
Data Reviewed
-
Diagnostic Radiology: Report Reviewed by me
Labs: Labs Reviewed by me
[2024-07-22] MEDS: APRESOLINE 50 MG PO ×2 (17:03→21:31)
[2024-07-23 03:56] VITALS: BMI 37.3
[2024-07-23 03:57] VITALS: BP 158/90
[2024-07-23 04:40] LABS: % Basophils 0.7 % (0-2); % Eosinophils 3.4 % (0-6); % Immature Granulocytes 0.3 % (0-0.5); % Monocytes 13.1 % (1.7-9.3); % Neutrophils 64.5 % (42.2-75.2); Absolute Basophils 0.1 10^3/uL (0-0.2); Absolute Eosinophils 0.3 10^3/uL (0-0.7); Absolute Lymphocytes 1.6 10^3/uL (1.2-3.4); Absolute Monocytes 1.2 10^3/uL (0.1-0.6); Absolute Neutrophils 5.7 10^3/uL (1.4-6.5); Hematocrit 38.9 % (39.0-52.0); Hemoglobin 12.7 g/dL (13.0-18.0); Mean Corp Hgb Conc. 32.6 g/dL (33.0-37.0); Mean Corpuscular Hgb 27.9 pg (27.0-31.0); Mean Corpuscular Volume 85.3 fL (80.0-94.0); Mean Platelet Volume 10.9 fL (7.4-10.4); Nucleated Red Blood Cells % 0 % (-); Platelet Count 218 10^3/uL (130-400); Red Blood Cell Count 4.56 10^6/uL (4.70-6.10); Red Cell Dist. Width 15.3 % (11.5-14.5); White Blood Cell Count 8.8 10^3/uL (4.8-10.8)
[2024-07-23 05:03] LABS: ALT (SGPT) 36 U/L (0-50); AST (SGOT) 33 U/L (17-59); Albumin 3.9 g/dl (3.5-5.0); Alkaline Phosphatase 85 U/L (38-126); Blood Urea Nitrogen 32 mg/dl (9-20); Carbon Dioxide 31 mmol/L (22-30); Chloride 100 mmol/L (98-107); Estimated Creatinine Clearance 39 ml/min; Glucose 95 mg/dl (70-99); Potassium 3.9 mmol/L (3.5-5.1); Sodium 142 mmol/L (135-145); Total Bilirubin 0.9 mg/dl (0.2-1.3); Total Protein 6.4 g/dl (6.3-8.2); eGFR 33.87
[2024-07-23 08:06] VITALS: BP 158/90
[2024-07-23] MEDS: IMDUR (EXTENDED RELEASE) 60 MG PO (08:24)
[2024-07-23] MEDS: APRESOLINE 50 MG PO ×3 (08:24→20:51)
[2024-07-23] MEDS: PROCARDIA XL (EXTENDED RELEASE) 30 MG PO (08:24)
[2024-07-23] MEDS: HEPARIN 5000 UNITS SC (08:25)
[2024-07-23] MEDS: COREG 6.25 MG PO ×2 (08:25→20:51)
[2024-07-23] MEDS: LASIX 40 MG IV (08:25)
--- NOTE | 2024-07-23 08:50 | PTCARENOTE ---
Assumed care of pt from body builder RN. Pt AAOx3. NSR on community health nursing director. VSS. Pt without complaint at this time. Resting in bed, call jimenes in reach. Assessment documented.
[2024-07-23 11:17] VITALS: BP 105/79
--- NOTE | 2024-07-23 15:00 | W.PN.HOSP.TC ---
Today's Communication/Plan
-
bp control
anticipate initiating anticoagulation today
ECHO tomorrow
Assessment / Plan
Assessment / Plan
Physical Exam
Constitutional: No acute distress and Comfortable
EENT: Anicteric
Cardiovascular: Rhythm & rate is regular, Systolic murmur absent, Pedal edema present (2-3+) and S1S2 is normal
Respiratory: Respiratory effort normal and Lungs clear to auscul.
GI: Soft
Neuro/Psych: AO x 3
Other: Skin (Warm, dry, intact)
#Shortness of breath
#Acute heart failure, unknown type- anticipate HFrEF
� diuresis 40 mg twice daily IV
� Coreg, hydralazine, isosorbide mononitrate
- Cards Consult
- F/u ECHO
#new Onset Atrial Fibrillation
-Monitor on Tele with Coreg
-Anticoagulation once BPs improve � elevated BPs pose risk for cva. - anticipate starting today
-TSH WNL
-F/u ECHO wednesday
#Hypertensive Emergency
-See plan above
-Coreg,
-Increase Hydralazine to 50mg TID
-Increase Imdur to 60mg daily
-Add Procardia Xl 30mg daily
#Elevated Troponin
�Most likely nonischemic myocardial injury in setting of uncontrolled hypertension, CKD
� Continue to monitor
#CKD
-Stable
-Suspect 2/2 to uncontrolled htn
-monitor
-Will need outpt primary screening
#DVT ppx
Anticipate starting anticoagulation once BPs more controlled - anticipate starting today
Anticipated Discharge: Within 24 hours
Subjective/Interval History
-
Date of Service: July 23, 2024
no acute events
Objective Data
-
Labs:
Laboratory Results
07/23/24
04:05
WBC 8.8
Hgb 12.7 L
Hct 38.9 L
Plt Count 218
Sodium 142
Potassium 3.9
Chloride 100
Carbon Dioxide 31 H
BUN 32 H
Creatinine 2.1 H
Glucose 95
Calcium 9.0
Total Bilirubin 0.9
AST 33
ALT 36
Alkaline Phosphatase 85
Vital Signs:
Vital Signs
Temp Pulse Resp BP Pulse Ox
98 F 73 20 105/79 97
07/23/24 11:16 07/23/24 12:00 07/23/24 11:16 07/23/24 11:17 07/23/24 11:16
I&O
07/22/24 07/23/24 07/24/24
06:59 06:59 06:59
Intake Total 720 / 720 120 / 120
Output Total 200 / 200
Balance 520 / 520 120 / 120
Review of Systems
-
History Source: Patient
All other systems: Not reviewed unless documented
Data Reviewed
-
Diagnostic Radiology: Report Reviewed by me
Labs: Labs Reviewed by me
--- NOTE | 2024-07-23 15:19 | W.PN.CD ---
Today's Communication / Plan
-
-Continue Coreg 6.25 mg BID.
-Continue Imdur 60 mg daily.
-Continue hydralazine 50 mg TID.
-Add Procardia XL 30 mg daily.
-Will obtain echocardiogram tomorrow.
-Now that blood pressure is controlled, can start Eliquis 5 mg BID.
-Volume status improved; will transition from Lasix 40 mg IV BID to Lasix 40 mg PO daily, which should be his home dose.
-Possible discharge home tomorrow after echocardiogram.
Impression / Plan
-
64-year-old male (previously known to Dr. 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
history of progressive lower extremity swelling, dyspnea, and weight gain. The patient denies chest pain or palpitations. The patient stated that after COVID, he decided to stop following up with Cardiology because he felt fine and was worried
about the potential of medication side effects. The patient was also found to be in atrial fibrillation with RVR on arrival to the ER with a blood pressure of 248/164 mmHg.
Hypertensive crisis:
-Secondary to medical noncompliance over the past 5 years (has not taken any medications).
-Will likely have some degree of resistant hypertension, given the chronicity.
-Blood pressure improved.
-Continue Coreg 6.25 mg BID.
-Continue Imdur 60 mg daily.
-Continue hydralazine 50 mg TID.
-Add Procardia XL 30 mg daily.
-Avoiding medications that could worsen kidney function at this time (MARY inhibitor/ARB/Entresto, etc.).
-Will obtain echocardiogram tomorrow.
New onset atrial fibrillation with RVR:
-Now back in sinus rhythm.
-C2V score is at least 3.
-TSH normal.
-Now that blood pressure is controlled, can start Eliquis 5 mg BID.
-Echocardiogram Wednesday.
Acute on chronic HFmrEF (40-45%):
-BNP 9170; significant edema on examination.
-GDMT as above.
-Volume status improved; will transition from Lasix 40 mg IV BID to Lasix 40 mg PO daily, which should be his home dose.
-Possible discharge home tomorrow after echocardiogram.
Troponin elevation:
-Acute nonischemic myocardial injury in the setting of uncontrolled hypertension and CKD.
CKD:
-Continue to monitor renal function.
Obesity:
-Chronic.
-Cholesterol controlled.
Physical Exam
Vital Signs/Labs
Vital Signs
Temp Pulse Resp BP Pulse Ox
98 F 73 20 105/79 97
07/23/24 11:16 07/23/24 12:00 07/23/24 11:16 07/23/24 11:17 07/23/24 11:16
07/22/24 07/23/24 07/24/24
06:59 06:59 06:59
Actual Weight 111.6 kg 104.9 kg
07/23/24 04:05
07/23/24 04:05
PT 15.2 Sec (11.4-14.6) H 07/21/24 14:52
INR 1.17 07/21/24 14:52
APTT 28.6 Sec (23.4-35.0) 07/21/24 14:52
Magnesium 2.1 mg/dl (1.6-2.3) 07/21/24 13:59
Triglycerides 76 mg/dl (10-149) 07/22/24 04:08
LDL Cholesterol, Calc 79 mg/dl 07/22/24 04:08
VLDL Cholesterol, Calc 15 mg/dl (0-30) 07/22/24 04:08
HDL Cholesterol 45 mg/dl 07/22/24 04:08
07/21/24
13:59
Jmp-S-Evedidpqzlj Pept 9170
LAB Results
07/21/24 07/21/24 07/21/24
13:59 18:04 22:25
Troponin I 0.170 H* 0.244 H* D 0.242 H*
Physical Exam
Constitutional: No acute distress and Comfortable
EENT: Anicteric and Moist mucous membranes
Cardiovascular: Rhythm & rate is regular, Pedal edema present (1+), Systolic murmur present (1/6) and S1S2 is normal
Respiratory: Respiratory effort normal and Rhonchi Present (Mild bibasilar)
GI: Soft
Neuro/Psych: AO x 3
Other: Skin (Warm, dry)
Data Reviewed
-
Date of Service: July 23, 2024
EKG: Tracing Personally Visualized and interpreted (Telemetry: Sinus rhythm)
Medical Tests (PFT, Pathology etc): Discussed with Physician (Primary Hospitalist)
Labs: Labs Reviewed by me
[2024-07-23 15:57] VITALS: BP 136/95
--- NOTE | 2024-07-23 19:45 | PTCARENOTE ---
Assumed care of pt from prev nsg shift; Pt AAOx3 w/no c/o CP or SOB. Pt's HR in the 80's & BP 158/85. Pt is SR w/BBB on telemetry. Pt w/no addtl needs at this time. Plan of care ongoing.
[2024-07-23 20:49] VITALS: BP 158/85
[2024-07-23] MEDS: ELIQUIS 5 MG PO (20:51)
[2024-07-23 23:11] VITALS: BP 152/94
[2024-07-24 03:52] VITALS: BP 146/93; BMI 36.9
[2024-07-24 04:24] LABS: % Basophils 0.5 % (0-2); % Eosinophils 2.4 % (0-6); % Immature Granulocytes 0.3 % (0-0.5); % Lymphocytes 15.1 % (20.5-51.1); % Monocytes 14.2 % (1.7-9.3); % Neutrophils 67.5 % (42.2-75.2); Absolute Basophils 0.1 10^3/uL (0-0.2); Absolute Eosinophils 0.2 10^3/uL (0-0.7); Absolute Lymphocytes 1.5 10^3/uL (1.2-3.4); Absolute Monocytes 1.4 10^3/uL (0.1-0.6); Absolute Neutrophils 6.5 10^3/uL (1.4-6.5); Hematocrit 40.1 % (39.0-52.0); Mean Corp Hgb Conc. 32.4 g/dL (33.0-37.0); Mean Corpuscular Hgb 27.8 pg (27.0-31.0); Mean Corpuscular Volume 85.9 fL (80.0-94.0); Mean Platelet Volume 10.7 fL (7.4-10.4); Nucleated Red Blood Cells % 0 % (-); Platelet Count 231 10^3/uL (130-400); Red Blood Cell Count 4.67 10^6/uL (4.70-6.10); Red Cell Dist. Width 15.2 % (11.5-14.5); White Blood Cell Count 9.7 10^3/uL (4.8-10.8)
[2024-07-24 04:50] LABS: ALT (SGPT) 32 U/L (0-50); AST (SGOT) 30 U/L (17-59); Albumin 4.2 g/dl (3.5-5.0); Alkaline Phosphatase 79 U/L (38-126); Blood Urea Nitrogen 27 mg/dl (9-20); Carbon Dioxide 31 mmol/L (22-30); Chloride 100 mmol/L (98-107); Estimated Creatinine Clearance 43 ml/min; Glucose 106 mg/dl (70-99); Potassium 3.8 mmol/L (3.5-5.1); Sodium 140 mmol/L (135-145); Total Bilirubin 1.1 mg/dl (0.2-1.3); Total Protein 6.7 g/dl (6.3-8.2); eGFR 38.19
[2024-07-24 07:19] VITALS: BP 179/98
--- NOTE | 2024-07-24 08:13 | W.PN.CD ---
Today's Communication / Plan
-
Increase Coreg
Monitor to see if meds need to be increased for control of HF
Check co-pay of SGLT2-I
Echo today
Had normal nuclear stress test in 10/2018
55 min spent on pt encounter today, review of records, interview pt, prepare document
Impression / Plan
-
64-year-old male (previously known to Dr. 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
history of progressive lower extremity swelling, dyspnea, and weight gain. The patient denies chest pain or palpitations. The patient stated that after COVID, he decided to stop following up with Cardiology because he felt fine and was worried
about the potential of medication side effects. The patient was also found to be in atrial fibrillation with RVR on arrival to the ER with a blood pressure of 248/164 mmHg.
HTN, severe, untreated
- Improved
- Not at goal
- For now avoiding RAAS-I (ARNI, MARY-I, ARB) but later may add, perhaps after elective nephrology evaluation
Acute on chronic HFimpEF
- 11/2019 LVEF had normalized
- In 2019 LVEF had been 40-45%
- Control of HTN will be most important aspect of controlling heart failure
- Echo today, would not be surprised to see a decline in LVEF
- Check copay of SGLT2-I
- For now avoiding RAAS-I (ARNI, MARY-I, ARB) but later may add, perhaps after elective nephrology evaluation
- HF education
Newly noted paroxysmal AFib, on admit HR 121
- Rhythm: Sinus, rates fine
- Oral anticoagulation: Now on Eliquis
- [id number] at least 3 (HF, HTN, age1)
Acute nonischemic myocardial injury in the setting of uncontrolled hypertension, CKD, fast AFib, and heart failure, peak troponin 0.244 .
CKD, Cr 1.9 today 07/24/2024
- Cr 1.6-1.7 in 2019
- Had some w/u here
Obesity, BMI 36.9
Chronic nonadherence to medical care and follow up
NSVT, 2-3 very short runs
- No palps/syncope/presycope
Subjective:
Dyspnea better, edema better but not resoved
Physical Exam
Vital Signs/Labs
Vital Signs
Temp Pulse Resp BP Pulse Ox
98.9 F 92 18 179/98 95
07/24/24 07:16 07/24/24 07:19 07/24/24 07:16 07/24/24 07:19 07/24/24 07:16
07/23/24 07/24/24 07/25/24
06:59 06:59 06:59
Actual Weight 104.9 kg 103.6 kg
07/24/24 04:00
07/24/24 04:00
PT 15.2 Sec (11.4-14.6) H 07/21/24 14:52
INR 1.17 07/21/24 14:52
APTT 28.6 Sec (23.4-35.0) 07/21/24 14:52
Magnesium 2.1 mg/dl (1.6-2.3) 07/21/24 13:59
Triglycerides 76 mg/dl (10-149) 07/22/24 04:08
LDL Cholesterol, Calc 79 mg/dl 07/22/24 04:08
VLDL Cholesterol, Calc 15 mg/dl (0-30) 07/22/24 04:08
HDL Cholesterol 45 mg/dl 07/22/24 04:08
07/21/24
13:59
Ydg-P-Fqmvcwyfacj Pept 9170
LAB Results
07/21/24 07/21/24 07/21/24
13:59 18:04 22:25
Troponin I 0.170 H* 0.244 H* D 0.242 H*
Physical Exam
Constitutional: No acute distress
EENT: Anicteric
Cardiovascular: Rhythm & rate is regular and Pedal edema present (trace on right and none on left)
Respiratory: Respiratory effort normal, Crackles Absent, Wheeze Present (just a few) and Rhonchi Present
GI: Soft and Non tender
Neuro/Psych: AO x 3
Data Reviewed
-
Date of Service: July 24, 2024
[2024-07-24] MEDS: COREG PO (08:45)
[2024-07-24] MEDS: PROCARDIA XL (EXTENDED RELEASE) 30 MG PO (08:47)
[2024-07-24] MEDS: IMDUR (EXTENDED RELEASE) PO ×2 (08:48→08:59)
[2024-07-24] MEDS: LASIX 40 MG PO (08:48)
[2024-07-24] MEDS: APRESOLINE 50 MG PO ×2 (08:48→15:31)
[2024-07-24] MEDS: ELIQUIS 5 MG PO (08:48)
[2024-07-24] MEDS: COREG 12.5 MG PO (08:49)
--- NOTE | 2024-07-24 08:51 | W.PN.HOSP.TC ---
Addendum entered and electronically signed by Shiela Archibald MD 07/24/24 16:26:
total DC time 38 min
Original Note:
Today's Communication/Plan
-
see A/P
Assessment / Plan
Assessment / Plan
A/P:
# Shortness of breath 2/2 Acute heart failure, unknown type- anticipate HFrEF
Check follow up echo
IV Lasix -> PO 40 mg daily
Cont Coreg, hydralazine, isosorbide mononitrate
Checking cost of Farxiga and Jardiance 10 mg one time a day, and Entresto BID
Cards on board
# new onset Atrial Fibrillation
Monitor on Tele with Coreg
Started anticoagulation Eliquis 5 mg BID
TSH WNL
F/u echo
# Hypertensive Emergency
Coreg dose increased to 12.5 BID
Imdur increased to 90 mg daily
Cont Hydralazine 50mg TID
Added Procardia Xl 30mg daily
# Elevated Troponin, most likely nonischemic myocardial injury in setting of uncontrolled hypertension, CKD
Trop plateaued at 0.2
# Mild wheezing, could be cardiac wheezing
CXR from 07/21: Cardiomegaly with slightly increased pulmonary vascularity suggesting possible mild CHF, acute versus chronic.
Can start prednisone 40 mg x5 days to help with wheezing
# CKD stage 3B, stable
Suspect 2/2 to uncontrolled htn
monitor SCr
DVT ppx: started Eliquis
FC
DW Card Dr. Kohli
DW RN
Anticipated Discharge: Within 24 hours
Subjective/Interval History
-
Date of Service: July 24, 2024
Objective Data
-
Labs:
Laboratory Results
07/24/24
04:00
WBC 9.7
Hgb 13.0
Hct 40.1
Plt Count 231
Sodium 140
Potassium 3.8
Chloride 100
Carbon Dioxide 31 H
BUN 27 H
Creatinine 1.9 H
Glucose 106 H
Calcium 9.0
Total Bilirubin 1.1
AST 30
ALT 32
Alkaline Phosphatase 79
Vital Signs:
Vital Signs
Temp Pulse Resp BP Pulse Ox
37.2 C 92 18 179/98 95
07/24/24 07:16 07/24/24 07:19 07/24/24 07:16 07/24/24 07:19 07/24/24 07:16
I&O
07/23/24 07/24/24 07/25/24
06:59 06:59 06:59
Intake Total 720 / 720 720 / 720
Output Total 200 / 200
Balance 520 / 520 720 / 720
Review of Systems
-
All other systems: Reviewed and negative
Physical Exam
-
General: Well Developed, Well Nourished, No Apparent Distress, Comfortable, Conversant and Obese
HEENT: Normocephalic, Atraumatic, Nose Appears Normal and Ears Appear Normal; Negative Oxygen
Respiratory: Wheezes (mild) and Non Labored Respirations; Negative Accessory Resp Muscle Use
Cardiac: Regular Rhythm and S1/S2
GI: Soft, Nontender, Nondistended and Normal Bowel Sounds
Musculoskeletal: Edema, Right Lower Extrem (mild) and Edema, Left Lower Extrem (mild)
Skin: Warm and Dry
Neuro: Awake, Alert, Oriented and AO x 3
Psych: Calm and Intact Judgement/Insight
Data Reviewed
-
Labs: Labs Reviewed by me
[2024-07-24] MEDS: IMDUR (EXTENDED RELEASE) 90 MG PO (09:03)
[2024-07-24] MEDS: DELTASONE 40 MG PO (09:38)
--- NOTE | 2024-07-24 10:11 | PTCARENOTE ---
Received patient this morning resting in bed. Scattered expiratory wheezes auscultated and patient has a occasional productive cough, started on PO steroids as ordered. Patient seen by cardiology and hospitalist, await echo which is being done now.
[2024-07-24] MEDS: SENOKOT-S 1 TABLET PO (11:26)
[2024-07-24] MEDS: MIRALAX 17 GRAMS PO (11:26)
[2024-07-24 11:44] VITALS: BP 119/62
[2024-07-24 12:37] VITALS: BP 119/62; PULSE 75; O2SAT 94
--- NOTE | 2024-07-24 12:55 | CM ---
Reviewed chart. Met with Mr. Galan to review discharge plans. He states prior to admission he resides with his 90 year old mother in a two story home with two steps to enter. He states he has a full flight of steps to get to bedroom/full bathroom.
He states he has a powder room on the first floor. He states prior to admission he was independent with ambulation and adls. He states he does not have any DME in the home. He has a prescription plan with [facility]. Telephone call to his pharmacy
benefit, ([phone]) to check on co-pays for medications. He has a $590.00 deductible that has tp be met. So his first script for Farxiga would be $844.61 then after that his co-pay is $25% of the cost of the medication that would be $145.48 a
month. Jardiance after his deductible has been met is $145.56 a month. Entresto 24/26 mg bid would be $84.00 a month, nd Eliquis is $70.00 a month. I can give him the one month free coupons. We also reviewed advanced directive. Gave him the
form. He will take the form home and review it. Medical work-up in progress. The discharge plan is to return home with his mother when medically stable.
[2024-07-24 15:17] VITALS: BP 130/76
--- NOTE | 2024-07-24 15:50 | PTCARENOTE ---
Echo completed, patient is cleared for discharge. Reviewed discharge instructions, medications and importance of compliance and that he should make an appointment to see cardiology within a week for follow up and he states his understanding. Patient
drove himself here, discharged home with his belongings, transport wheeling patient to the discharge area in the main lobby.
--- NOTE | 2024-07-24 16:15 | W.DCSUMMARY ---
Discharge Summary
Discharge Data
Date of Admission: 07/21/24
Date of Discharge: 07/24/24
-
Pending Results: No
Hospital Course
Principal Diagnosis:
Shortness of breath due to acute diastolic heart failure.
new onset Atrial Fibrillation.
Hypertensive Emergency.
Mild wheezing, could be cardiac wheezing.
Chronic Diagnoses:�
Chronic kidney disease (CKD) stage 3B, stable
Consultations:�
Cardiology
Procedures:�
None
Clinical course:�
This is a 69-year-old male, with past medical history as stated above, who presented with shortness of breath.
Problem 1:
Shortness of breath due to acute diastolic heart failure.
His echo showed normal biventricular size and systolic function without regional wall motion abnormality, with estimated EF at 55-60%.
He received IV Lasix while in the hospital, and was discharged with oral Lasix 40 mg daily.
During this admission, Coreg 12.5 mg twice daily, hydralazine 50 mg TID, and Imdur 90 mg daily were added.
Farxiga 10 mg was also sent to his pharmacy.
Of note, his troponin was noted to be elevated, but plateaued at 0.2. This was felt most likely due to nonischemic myocardial injury.
The patient can follow-up with cardiology outpatient.
Problem 2:
new onset Atrial Fibrillation.
Coreg 12.5 mg twice daily was started this admission.
He was also started with Eliquis 5 mg twice daily.
Of note, his TSH was WNL at 1.73.
Problem 3:
Hypertensive Emergency.
Coreg, hydralazine, and Imdur dosage as stated above.
Nifedipine 30mg daily was also added for better blood pressure control.
Problem 4:
Mild wheezing, could be cardiac wheezing.
His CXR from 07/21 showed cardiomegaly with slightly increased pulmonary vascularity suggesting possible mild CHF, acute versus chronic.
He was started with prednisone 40 mg for 5 days to help with his mild wheezing.
As for the rest of his medical problems, they were stable during his hospital stay.
Discharge Plan
-
Patient Disposition: Home (Routine Discharge)
Discharge Diagnosis/Procedures: Shortness of breath due to Acute diastolic heart failure;
New onset Atrial Fibrillation;
Hypertensive Emergency (resolved)
Condition: Fair
Diet: As tolerated, Low Fat, Low Cholesterol, Low Sodium and Restrict fluids to 64 oz
Activity: As tolerated
Driving Restrictions: As prior to admission
Specialty Instructions: Weigh Daily- Call MD for wt gain/loss 3 lbs overnight/5 lbs in 1 week
Instructions: *CBC Heart Failure Instructions
Referrals:
NONE,* [Family Provider] - in less than 1 week
Prescriptions:
New
hydralazine 50 mg Tablet
50 mg PO TID Qty: 90 0RF
carvedilol 12.5 mg Tablet
12.5 mg PO BID Qty: 60 0RF
Eliquis 5 mg Tablet
5 mg PO BID Qty: 60 0RF
isosorbide mononitrate 30 mg Tablet Extended Release 24 Hr
90 mg PO DAILY Qty: 30 0RF
furosemide 40 mg Tablet
40 mg PO DAILY Qty: 30 0RF
nifedipine 30 mg Tablet Extended Release
30 mg PO DAILY Qty: 30 0RF
dapagliflozin propanediol [Farxiga] 10 mg tablet
10 mg PO DAILY Qty: 30 0RF
prednisone 20 mg tablet
40 mg PO DAILY 4 Days Qty: 8 0RF
Discharge Orders:
Discharge Patient (As Directed); Ordered 07/24/24
Ordered By: Shiela Archibald
Care Plan Goals
Care Plan Goals:
Problem: Readiness for enhanced knowledge related to diagnosis and treatment plan
Goal: Understand your diagnosis and treatment plan needs, including medications if applicable.
Instructions: Know your diagnosis, underlying causes and treatment plan options, including medications if applicable. Consult with your health care team to learn about your diagnosis and treatment plan, including medications if applicable.
Discharge Date and Time
Discharge Date/Time: 07/24/24 15:50
Print Language: NAMIBIAN
--- NOTE | 2024-07-25 10:38 | W.HF.CON ---
Heart Failure
- LV Function
Left ventricular function study result: LV Ejection fraction >/= 50%
Ejection Fraction Percentage: 55-60
- ARNI
Patient already on ARNI: No
Heart Failure ARNI Not Indicated: LV Ejection Fraction >/= 40%
- ACEI/ARB
Patient already on ACEI/ARB: No
Heart Failure ACEI/ARB Not Indicated: LV Ejection Fraction > 40%
- Beta Sujata
Patient already on Evidence Based Beta Suajta: Yes
- SGLT-2 Inhibitor
Patient already on SGLT-2 Inhibitor: Yes
- Hydralazine & Isosorbide Dinitrate
Patient already on Hydralazine & Isosorbide Dinitrate: Yes
- Afib Anticoagulation
Patient already on Anticoagulation for Afib: Yes
- NYHA CHF Classification
NYHA CHF Classification Level: Class III - Symptoms w/ min exertion, interferes w/ nml daily activity
- ACC/AHA Stage
ACC/AHA Stage: Stage C: Symptomatic Heart Failure
== END 2024-07-24 15:50 | disposition home or self-care (01) | DRG 291 ==
LOC: IVU 17:44
PROVIDERS: Clinical Nurse Specialist Family Health; Physician Assistant; ADMITTING PHYSICIAN Internal Medicine; ATTENDING PHYSICIAN Internal Medicine; CONSULT PHYSICIAN Internal Medicine; EMERGENCY PHYSICIAN Emergency Medicine
DX: I13.0 Hypertensive heart and chronic kidney disease with heart failure and stage 1 through stage 4 chronic kidney disease, or unspecified chronic kidney disease (principal); I50.23 Acute on chronic systolic (congestive) heart failure; I16.1 Hypertensive emergency; Z68.41 Body mass index [BMI] 40.0-44.9, adult; I47.10 Supraventricular tachycardia, unspecified; J45.909 Unspecified asthma, uncomplicated; N18.32 Chronic kidney disease, stage 3b; E66.9 Obesity, unspecified; I5A Non-ischemic myocardial injury (non-traumatic); I48.91 Unspecified atrial fibrillation; I43 Cardiomyopathy in diseases classified elsewhere; E66.813 Obesity, class 3; Z91.199 Patient's noncompliance with other medical treatment and regimen due to unspecified reason; Z87.891 Personal history of nicotine dependence; Z85.820 Personal history of malignant melanoma of skin; Z82.49 Family history of ischemic heart disease and other diseases of the circulatory system; Z79.899 Other long term (current) drug therapy
CPT/HCPCS: 71046; 80053; 80061; 83036; 83735; 83880; 84443; 84484; 85025; 85610; 85730; 93005; 93306; 96374; 97161; 97530; 99285